=== PATIENT | male | born 1980 | race Caucasian/White ===

== ENCOUNTER 2021-05-07 03:18 | Emergency (ER) | payer BC, OTHER ==
--- NOTE | 2021-05-07 03:45 | EDM.PDOC ---
ED HPI GENERAL MEDICAL PROBLEM - General Chief Complaint: ENT Problem Stated Complaint: sore throat Time Seen by Provider: 05/07/21 03:35 Source of Information: Reports: Patient, Old Records ([facility] EMR. No paper hospital chart available.) History Limitations: Reports: No Limitations - History of Present Illness INITIAL COMMENTS - FREE TEXT/NARRATIVE: Patient drove himself to the emergency room via private automobile for evaluation of 4-5/10 sore throat with symptoms starting about 2 days ago. Symptoms are refractory to OTC salt gargles, cough drops, and OTC cold medications with no known exposure to infection, including strep, pneumonia, COVID-19 etc. No recent history of abdominal pain, heartburn, nausea, diarrhea, melena, gross hematochezia, or any food intolerance, including fatty foods, etc.. The patient also denies any recent fever, wheezing, dyspnea, etc. with a minimal nonproductive cough a couple of days ago. Onset: Gradual Onset Date: 05/05/21 Duration: Constant Location: Reports: Other (Sore throat as above) Quality: Reports: Same as Previous Episode, Throbbing Severity: Moderate Improves with: Reports: None Worsens with: Reports: None Context: Reports: Other (As above). Denies: Sick Contact, Trauma Associated Symptoms: Reports: Cough (Brief as above). 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 Cardiovascular History: Denies: Hypertension Genitourinary History: Reports: Renal Calculus, Other (See Below) Other Genitourinary History: Bilateral nephrolithiasis with left-sided urolithiasis on 09/24/2015 with spontaneous passage. - Infectious Disease History Infectious Disease History: Denies: Novel Coronavirus (Not immunized to this point) - Past Imaging History Past Imaging History: Reports: CAT Scan (Abdomen pelvis with stone protocol on 09/24/2015.) Social & Family History - Tobacco Use Tobacco Use Status *Q: Current Every Day Tobacco User Tobacco Use Within Last Twelve Months: Snuff/Dip Years of Tobacco use: 26 Packs/Tins Daily: 0.4 Packs/Tins Daily Comment: Has been chewing tobacco about 1/3 can/day since age 38 with previous cigarette use with the patient started smoking at age 14 with maximum use of 1.5 packs/day. No current cigarette use. 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 ED EXAM, GENERAL - Physical Exam Exam: See Below Exam Limited By: No Limitations General Appearance: Alert, WD/WN, No Apparent Distress Eye Exam: Bilateral Eye: EOMI, Normal Inspection, PERRL Ears: Normal External Exam, Normal Canal, Hearing Grossly Normal, Normal TMs Nose: Normal Inspection, Normal Mucosa, No Blood Throat/Mouth: Normal Lips, Normal Teeth, Normal Gums, Normal Voice, No Airway Compromise. No: Normal Oropharynx (Large +3+4 tonsils with +2 erythema without pinpoint 1 exudates, peritonsillar abscess, etc.), Dysphagia, Perioral Cyanosis Head: Atraumatic, Normocephalic. No: Facial Swelling, Facial Tenderness, Sinus Tenderness Neck: Normal Inspection, Supple, Non-Tender, Full Range of Motion. No: Lymphadenopathy (L), Lymphadenopathy (R), Thyromegaly Respiratory/Chest: No Respiratory Distress, Lungs Clear, Normal Breath Sounds, No Accessory Muscle Use, Chest Non-Tender. No: Pleural Rub, Retractions Cardiovascular: Normal Peripheral Pulses, Regular Rate, Rhythm, No Edema, No Gallop, No JVD, No Murmur, No Rub. No: Gallop/S3, Gallop/S4, Friction Rub Peripheral Pulses: 2+: Radial (L), Radial (R) GI/Abdominal: Normal Bowel Sounds, Soft, Non-Tender, No Organomegaly, No Distention, No Abnormal Bruit, No Mass. No: Guarding (Male) Exam: Deferred Rectal (Males) Exam: Deferred Back Exam: Normal Inspection, Full Range of Motion. No: CVA Tenderness (L) (Cynthia Solano PA-C at the [facility] in [place]), CVA Tenderness (R) Extremities: Normal Inspection, Normal Range of Motion, Non-Tender, No Pedal Edema, Normal Capillary Refill. No: Teofilo's Sign Neurological: Alert, Oriented, CN II-XII Intact, Normal Cognition, Normal Gait, No Motor/Sensory Deficits Psychiatric: Normal Affect, Normal Mood Skin Exam: Warm, Dry, Intact, Normal Color, No Rash. No: Diaphoretic, Wound/Incision Lymphatic: No Adenopathy Course - Vital Signs Last Recorded V/S: Last Vital Signs Temp 37.1 C 05/07/21 03:20 Pulse 71 05/07/21 03:20 Resp 20 05/07/21 03:20 BP 149/77 H 05/07/21 03:20 Pulse Ox 99 05/07/21 03:20 Vital Signs - 24 hr 05/07/21 03:20 Temperature [ 37.1 C Oral] Pulse, 71 Peripheral [ Pulse Oximetry] Respiratory 20 Rate Blood Pressure 149/77 H [Upper Arm] O2 Sat by Pulse 99 Oximetry - Orders/Labs/Meds Orders: Active Orders 24 hr Category Date Time Status CORONAVIRUS COVID-19 CIRO [MOLEC] Stat Lab 05/07/21 03:30 Received CULTURE STREP A CONFIRMATION [RM] Stat Lab 05/07/21 03:30 Results STREP SCRN A RAPID W CULT CONF [RM] Stat Lab 05/07/21 03:30 Results Obtain Past Medical Record [OM.PC] Routine Oth 05/07/21 03:45 Active Labs: Microbiology 05/07/21 03:30 Group A Streptococcus Rapid Screen - Final Throat NEGATIVE STREP A SCREEN REFERENCE RANGE: NEGATIVE COVID-19 rapid test collected with results pending Meds: None - Radiology Interpretation Free Text/Narrative:: None Departure - Departure Time of Disposition: 04:07 Disposition: Home, Self-Care 01 Condition: Good Clinical Impression: Tonsillitis, Tobacco abuse counseling, Elevated blood pressure reading - Discharge Information *PRESCRIPTION DRUG MONITORING PROGRAM REVIEWED*: Not Applicable *COPY OF PRESCRIPTION DRUG MONITORING REPORT IN PATIENT JOHN: Not Applicable Instructions: Tonsillitis, [id number], Health Risks of Smoking, Smokeless Tobacco Information, Adult Referrals: PCP,None [Primary Care Provider] - Forms: ED Department Discharge, ED Return to Work/School Form Additional Instructions: 1. Follow up with your regular provider in 10-14 days as needed, if symptoms persist. Bring these discharge instructions with you to that visit. 2. Tylenol 650 mg by mouth every 4 hours and/or OTC ibuprofen 2-3 tabs by mouth every 6 hours with food as directed./needed. You may stagger these medications for 48-72 hours only, which essentially means that you are receiving a pain medication about every 2 hours. 3. Listerine gargles four times per day, after meals and at bedtime, with additional Chloroseptic lozenges or spray as needed for 10 days and/or until symptoms resolve. 4. Maintain recommended quarantine until you have been notified of today's COVID-19 test results as discussed with return to previous social distancing, use of masks, etc., thereafter as per current recommended CDC guidelines 5. Stop all tobacco use DIAMOND as directed/per provided information and consider contacting Quit LIne, etc.. 6. Work excuse- See Form 7. If your Covid test is negative, obtain your Covid vaccine DIAMOND as discussed 8. Immediately after this visit verify that your cellular telephone's voicemail has been activated and is empty. Also verify that your home telephone's answering machine is operating properly and has space to receive messages. Note that it is sometimes necessary for us to be able to contact you at a later date to discuss your medical care. 9. Please remember that we are ALWAYS here for you and want to answer any questions you may have. Feel free to call the hospital any time and we call you back DIAMOND. 10. Continue to observe your blood pressures closely through your regular provider Sepsis Event Note (ED) - Evaluation Sepsis Screening Result: No Definite Risk - Focused Exam Vital Signs: Vital Signs Temp Pulse Resp BP Pulse Ox 05/07/21 03:20 37.1 C 71 20 149/77 H 99 - Problem List & Annotations (1) Tonsillitis SNOMED Code(s): 66539855 Code(s): J03.90 - ACUTE TONSILLITIS, UNSPECIFIED Status: Acute Priority: High Onset Date: ~05/05/21 Annotation/Comment:: Symptomatic relief as per discharge instructions. No direct COVID-19 symptoms or exposure, although specimen was collected with results pending. Hygiene, isolation, etc. precautions were discussed. Work excuse was provided. Patient usually gets a sore throat on a yearly basis with only 1 previous confirmed strep throat. His tonsils are quite large and he may benefit from an ENT referral and/or tonsillectomy with this discussed with the patient today. No history of fatigue, current lymphadenopathy, or evidence of mononucleosis based on clinical exam with further testing depending on his clinical course. (2) Elevated blood pressure reading SNOMED Code(s): 27797374 Code(s): R03.0 - ELEVATED BLOOD-PRESSURE READING, W/O DIAGNOSIS OF HTN Status: Acute Priority: Medium Onset Date: 05/07/21 Annotation/Comment:: No history of hypertension. Continue to observe closely by his regular provider. (3) Tobacco abuse counseling SNOMED Code(s): 260508617, 228029148, 382234849 Code(s): Z71.6 - TOBACCO ABUSE COUNSELING Status: Chronic Priority: Medium Annotation/Comment:: Tobacco cessation strongly encouraged with information provided. He was counseled about the use of Nicorette gum. - Problem List Review Problem List Initiated/Reviewed/Updated: Yes - My Orders Last 24 Hours: My Active Orders 05/07/21 03:30 CORONAVIRUS COVID-19 CIRO [MOLEC] Stat CULTURE STREP A CONFIRMATION [RM] Stat STREP SCRN A RAPID W CULT CONF [RM] Stat 05/07/21 03:45 Obtain Past Medical Record [OM.PC] Routine - Assessment/Plan Last 24 Hours: My Active Orders 05/07/21 03:30 CORONAVIRUS COVID-19 CIRO [MOLEC] Stat CULTURE STREP A CONFIRMATION [RM] Stat STREP SCRN A RAPID W CULT CONF [RM] Stat 05/07/21 03:45 Obtain Past Medical Record [OM.PC] Routine Assessment:: As above Plan: As above. Extensive precautions were given to the patient, who is in agreement with the treatment plan. See Patient Instructions for further treatment and plan.
== END 2021-05-07 04:05 | disposition home or self-care (01) ==
LOC: LL.ED 03:18
DX: J03.90 Acute tonsillitis, unspecified (principal); I10 Essential (primary) hypertension; Z71.6 Tobacco abuse counseling; Z72.0 Tobacco use; Z20.822 Contact with and (suspected) exposure to COVID-19
CPT/HCPCS: 87081; 87430; 99283; U0002